=== PATIENT | female | born 1965 | race African-American/Black ===

== ENCOUNTER 2017-03-29 09:05 | Emergency (ER) | payer OTHER ==
[~2017-03-29] VITALS: Ht 160 cm; Wt 77.1 kg
[2017-03-29] MEDS ORDERED: ADDERALL 20 MG20 MG ORAL (09:25)
[2017-03-29] MEDS ORDERED: Tetanus/Diptheria/Pertussis Vaccine 0.5ml Syr IM ONE ×2 (09:37→09:45)
[2017-03-29 10:04] VITALS: BP 130/91
--- NOTE | 2017-03-29 10:13 | Emergency Room Report ---
History of Present Illness General Chief Complaint: Laceration Source: Patient Present Illness HPI Patient presents emergency department today complaining of laceration to left eyebrow. Patient states that she bumped into something going on and sustaining a laceration to her left eyebrow. Bleeding stopped. She denies any dizziness or difficulty with vision. She does not remember her last tetanus update. The laceration is approximately 1 cm in length involving the left eyebrow. No other complaints are noted. Symptoms noted to be mild to moderate.No other modifying factors. No other associated signs and symptoms. No other complaints were noted. Allergies: Uncoded Allergies: BENZOPEROXIDE (Allergy, Unknown, 03/29/17) Patient History Past Medical History: none Past Surgical History: none Pertinent Family History: none Social History: Denies: alcohol use, drug use, smoking Last Menstrual Period: premenopause Now: No Reviewed Nursing Documentation: PMH: Agreed, PSxH: Agreed Nursing Documentation-PMH Past Medical History: No History, Except For Review of Systems All Other Systems: negative except mentioned in HPI Physical Exam Vital Signs Date Time Temp Pulse Resp B/P Pulse Ox O2 Delivery O2 Flow Rate FiO2 03/29/17 09:21 98.2 78 14 153/91 97 Room Air Sp02 EP Interpretation: reviewed, normal General Appearance: normal inspection, well appearing, no apparent distress, alert Head: atraumatic Eyes: bilateral eye normal inspection ENT: hearing grossly normal, normal voice, other - left eyebrow laceration, superfical 1 cm Neck: normal inspection Respiratory: no respiratory distress Cardiovascular #1: no edema Gastrointestinal: no hernia Musculoskeletal: normal inspection Neurologic: normal inspection, alert, responsive, speech normal Psychiatric: normal inspection, judgement/insight normal, mood/affect normal Skin: normal color, no rash, other - laceration left eyebrow Procedures Laceration/Wound Repair Laceration/Wound Repair : Consent: Verbal Wound Location: face Wound's Depth, Shape: superficial Wound Length (cm): 1 Wound Explored: clean Irrigated w/ Saline (ccs): 100 Wound Repaired With: Dermabond Patient Tolerated: Well Complications: None Medical Decision Making Diagnostic Impression: Primary Impression: Laceration ER Course Patient presents emergency department today complaining of laceration to the left eyebrow. Differential considerations include deep tissue injury superficial laceration fracture just to name a few. Patient exam is consistent with a superficial laceration that require repair. Wound repaired. Patient was given wound care instructions.Patient is advised to follow up with primary doctor in 2-3 days and return the emergency room for any worsening symptoms and as needed. Last Vital Signs Date Time Temp Pulse Resp B/P Pulse Ox O2 Delivery O2 Flow Rate FiO2 03/29/17 10:04 73 14 130/91 99 Room Air 03/29/17 10:04 98.2 Status: improved Disposition: HOME, SELF-CARE Condition: Stable [facility],REFERRING (PCP) Patient Instructions: Laceration Care, Adult MORIAH MOORE M.D. Mar 29, 2017 10:13
== END 2017-03-29 10:08 | disposition home or self-care (01) ==
LOC: EMR 09:56
DX: S01.112A Laceration without foreign body of left eyelid and periocular area, initial encounter (principal); W22.8XXA Striking against or struck by other objects, initial encounter; Y92.89 Other specified places as the place of occurrence of the external cause; Z23 Encounter for immunization
CPT/HCPCS: 90471; 90715; 96372